=== PATIENT | male | born 1985 | race Caucasian/White ===

== ENCOUNTER → 2020-11-26 | Outpatient (CLI) | payer BC | LOC: DIA.ED 08:31 | DX: E11.65 Type 2 diabetes mellitus with hyperglycemia (principal); Z79.84 Long term (current) use of oral hypoglycemic drugs | CPT/HCPCS: G0108 ==

== ENCOUNTER → 2021-01-07 | Outpatient (CLI) | payer BC | LOC: MHCPAIN 14:22 | DX: M54.5 Low back pain (principal); M25.552 Pain in left hip | CPT/HCPCS: G0463 ==

== ENCOUNTER → 2021-01-08 | Outpatient (CLI) | payer BC | LOC: DIA.ED | DX: E11.40 Type 2 diabetes mellitus with diabetic neuropathy, unspecified (principal); Z79.84 Long term (current) use of oral hypoglycemic drugs | CPT/HCPCS: G0108 ==

== ENCOUNTER 2021-01-30 16:15 | Outpatient (RCR) | payer BC | END 2021-04-14 | disposition home or self-care (01) | LOC: WSPT | DX: M54.16 Radiculopathy, lumbar region (principal) ==

== ENCOUNTER → 2021-04-08 | Outpatient (CLI) | payer BC | LOC: DIA.ED 08:34 | DX: E11.65 Type 2 diabetes mellitus with hyperglycemia (principal); Z79.84 Long term (current) use of oral hypoglycemic drugs | CPT/HCPCS: G0108 ==

== ENCOUNTER → 2022-01-18 | Outpatient (CLI) | payer BC | LOC: DIA.ED 12-16 09:58 | DX: E11.65 Type 2 diabetes mellitus with hyperglycemia (principal); Z79.84 Long term (current) use of oral hypoglycemic drugs | CPT/HCPCS: G0108 ==